=== PATIENT | female | born 1950 | race African-American/Black ===

== ENCOUNTER 2017-01-09 07:55 | Emergency (ER) | payer OTHER ==
[~2017-01-09] VITALS: Ht 160 cm; Wt 65.0 kg
[2017-01-09] MEDS ORDERED: LOSA25TA12 PO (08:10)
[2017-01-09] MEDS ORDERED: LORAZEPAM 1MG TABLET PO ONE (09:00)
[2017-01-09 10:15] VITALS: BP 180/92
== END 2017-01-09 10:22 | disposition home or self-care (01) ==
LOC: ER 08:24
DX: F41.0 Panic disorder [episodic paroxysmal anxiety] (principal); I10 Essential (primary) hypertension
CPT/HCPCS: 99283

== ENCOUNTER 2019-05-27 06:01 | Emergency (ER) | payer OTHER ==
[~2019-05-27] VITALS: Ht 165.1 cm; Wt 71.6 kg
[~2019-05-27 06:01] MED LIST: LOSA25TA26 PO
[2019-05-27 06:39] LABS: PROTHROMBIN TIME 10.8 sec (9.6-11.0)
[2019-05-27 06:40] LABS: BASOPHILS % 0.5 % (0.0-2.0); CHLORIDE 108 mEq/L (98-107); EOSINOPHILS % 2.8 % (0.0-5.0); HEMATOCRIT. 35.8 % (36.0-48.0); HEMOGLOBIN. 12.2 g/dL (12.0-16.0); LYMPHOCYTES % 24.5 % (20.0-50.0); MEAN CORPUSCULAR HEMOGLOBIN 26.7 pg (28.0-32.0); MEAN CORPUSCULAR VOLUME 78.3 fL (81.0-99.0); MEAN PLATELET VOLUME 8.5 fl (7.4-10.4); MONOCYTES % 11.6 % (2.0-8.0); NEUTROPHILS % 60.6 % (40.0-76.0); PLATELET 256 x1000/uL (130-400); RED BLOOD CELL COUNT 4.58 mill/uL (4.2-5.4); RED CELL DISTRIBUTION WIDTH 16.1 % (11.6-14.6)
[2019-05-27 06:44] LABS: ETHANOL BLOOD < 10 mg/dL
[2019-05-27 06:47] LABS: LDL CHOLESTEROL 140 mg/dL (5-100)
[2019-05-27] MEDS ORDERED: ASPIRIN 325MG EC TABLET PO ONE (07:00)
[2019-05-27] MEDS ORDERED: ASPIRIN 300MG SUPP PR ONE ×2 (08:30→09:15)
[2019-05-27 09:26] LABS: CLARITY URINE CLEAR (CLEAR); COLOR URINE YELLOW (YELLOW); KETONES URINE NEGATIVE (NEGATIVE); LEUKOCYTE ESTERASE URINE NEGATIVE (NEGATIVE); NITRITE URINE NEGATIVE (NEGATIVE); OCCULT BLOOD URINE TRACE (NEGATIVE); PROTEIN URINE NEGATIVE (NEGATIVE); SPECIFIC GRAVITY URINE 1.006 (1.005-1.030); UROBILINOGEN URINE 0.2 E.U./dL (0.2-1.0)
[2019-05-27 09:41] LABS: *BARBITURATES SCREEN URINE NEGATIVE (NEGATIVE); *BENZODIAZEPINES SCREEN URINE NEGATIVE (NEGATIVE)
[2019-05-27 09:42] LABS: *AMPHETAMINES SCREEN URINE NEGATIVE (NEGATIVE); *COCAINE SCREEN URINE NEGATIVE (NEGATIVE); CANNABINOID URINE SCREEN NEGATIVE (NEGATIVE); METHADONE URINE SCREEN NEGATIVE (NEGATIVE); OPIATES URINE SCREEN NEGATIVE (NEGATIVE); PHENCYCLIDINE URINE SCREEN NEGATIVE (NEGATIVE)
[2019-05-27 10:37] VITALS: BP 161/74
[2019-05-27] MEDS ORDERED: IOHEXOL-350 100 ML BOTTLE ONE (14:43)
== END 2019-05-27 10:47 | disposition short-term general hospital (02) ==
LOC: ER 06:01 → CANBEDREQ 09:41 → ER 10:47
DX: I63.9 Cerebral infarction, unspecified (principal); I65.29 Occlusion and stenosis of unspecified carotid artery; I10 Essential (primary) hypertension
CPT/HCPCS: 36415; 70450; 70496; 70498; 71045; 80053; 80305; 80320; 81003; 82962; 83721; 84484; 85025; 85610; 93005; 99285; Q9967; G0480